=== PATIENT | female | born 1995 | race American Indian/Alaskan Native ===

== ENCOUNTER 2025-02-06 15:31 | Outpatient (AMB) | payer MEDICARE, MEDICAID, SELFPAY ==
--- NOTE | 2025-02-06 15:33 | A.OFFPC_ITS ---
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: No Accompanied by: Self / Same As Patient Allergies gabapentin Allergy (Mild, Verified 02/06/25 15:44) Muscle cramps pregabalin (From Lyrica) Allergy (Mild, Verified 02/06/25 15:44) Muscle cramps Medication List - Last Reconciled 02/08/25 by Manpreet Coe MD buspirone 5 mg PO TID cholecalciferol (vitamin D3) 25 mcg PO DAILY guanfacine 1 mg PO DAILY omeprazole 20 mg PO DAILY Tobacco use date assessed: 02/06/25 Dental Screening Dental Screen Date: 02/06/25 Did you have a dental visit in the last 12 months?: Yes Did you have a dental problem in the last 6 months where you did not have access to dental care?: Yes Was dental information given to patient?: Patient has dentist HPI HPI Comments History of Present Illness Details History of Present Illness The patient is a 29-year-old female presenting to [facility] as she is transitioning from another practice. Autism Spectrum Disorder: The patient has a diagnosis of autism with associated sensory sensitivities, particularly to sound. Due to her sensitivity, she is unable to be on camera during telehealth appointments. Post-traumatic Stress Disorder: A few months ago, the patient experienced an acoustic trauma from a loud noise, which immediately caused a headache and disorientation. Following this event, she was seen by an ENT who prescribed potassium iodide nasal drops in error, which caused a violent screaming reaction. Her mother reports that since these events, the patient has been totally traumatized, is highly agitated, angry, cries easily, and has difficulty with self-care such as washing her face. She becomes visibly distressed and cries when the events are discussed. She previously saw a therapist online but stopped due to a negative interaction where the therapist was reportedly cruel and did not accommodate her needs related to her autism. Chronic Pain Syndrome: The patient has diagnoses of fibromyalgia, chronic pain syndrome, and chronic headaches. She also experiences paresthesias. Her mother states the chronic pain began years ago after the patient suffered a concussion in school that was not properly addressed. She also sustained a fall flat on her back after the concussion for which she received some physical therapy but no other treatment. She takes ibuprofen for pain, which she reports is not always effective. Endometriosis: The patient has a diagnosis of endometriosis, which was identified on an ultrasound. She manages this condition with a Depo-Provera injection every three months. Eustachian Tube Dysfunction: The patient has a patulous Eustachian tube in her right ear. A previous ENT prescribed an incorrect medication (potassium iodide) for this, which resulted in a severe adverse reaction. Medications: - Buspirone 5 mg - Omeprazole - Vitamin D - Depo-Provera injection every 3 months for endometriosis - Ibuprofen as needed for pain Social History: - The patient is a 29-year-old female wh o is accompanied to the visit by her mother, who serves as the primary historian. - She has a diagnosis of autism, which p resents with auditory hypersensitivity. - Functional Status: The patient is quie t and becomes highly agitated and emotionally distressed when discussing past traumatic medical events. - She has experienced past negative inte ractions with healthcare providers, contributing to her current distress. Family History: - Mother: Has a history of chest pain, w as told she needed coronary artery bypass grafting (CABG) after a cardiac catheterization, which was then changed to a plan for stents. - Mother: Has a history of iron deficien cy anemia. Diagnostic Results: - Ultrasound: Revealed endometriosis. Past Medical History - Autism spectrum disorder - Fibromyalgia - Chronic pain syndrome, since a concuss ion years ago - Chronic headaches - Peripheral neuropathy - Endometriosis - Right eustachian tube dysfunction - History of concussion - History of a fall on her back - History of Pap smear Health Maintenance - Patient receives a Depo-Provera inject ion every three months for endometriosis. - Baseline laboratory studies were order ed, including CBC, CMP, urinalysis, hemoglobin A1c, lipid panel, vitamin B12, folate, vitamin D, TSH, and screening for hepatitis B, hepatitis C, and HIV. - Patient has had a Pap smear in the [facility] Medical History (Updated 02/08/25 @ 20:29 by Manpreet Coe MD) Anxiety Chronic headache Paresthesia Fibromyalgia Eustachian tube dysfunction Endometriosis Chronic pain syndrome PTSD (post-traumatic stress disorder) Autism spectrum disorder Family History (Updated 02/06/25 @ 15:49 by Stephane Maza MA) Father No problems noted. Mother Heart disease Kidney disease Fibromyalgia Social History Housing: House Patient Tobacco Use Status: Never used Tobacco service: No Current occupational status: disabled Cognitive needs: Yes Hearing needs: No Vision needs: Yes (rx glasses) Questionnaire PHQ-9 Over the last 2 weeks, how often have you been bothered by any of the following problems? 1. Little interest or pleasure in doing things: several days 2. Feeling down, depressed, or hopeless: not at all 3. Trouble falling or staying asleep, or sleeping too much: several days 4. Feeling tired or having little energy: several days 5. Poor appetite or overeating: not at all 6. Feeling bad about yourself - or that you are a failure or have let yourself or your family down: several days 7. Trouble concentrating on things, such as reading the newspaper or watching television: several days Source: Developed by Drs. Arpan Plummer, Patricia Stewart, Pedro Jones and colleagues, with an educational chance from [employer]. Review of Systems Narrative Review of Systems - General: Reports difficulty sleeping, taking a while to get settled. - HEENT: Reports history of auditory hypersensitivity. - Neurological: Reports chronic headaches and paresthesias. - Psychiatric: Reports feeling highly agitated, angry, and cries easily. - Musculoskeletal: Reports chronic pain. - Gastrointestinal: Reports new onset of abdominal pain today. - Genitourinary: Mother reports patient is urinating okay. 10-point ROS reviewed and negative except as noted in HPI Physical exam (Primary Care) Vital Signs: Last Vital Signs Temp 98.2 F 02/06/25 15:38 Pulse 89 02/06/25 15:38 Resp 16 02/06/25 15:38 BP 124/90 H 02/06/25 15:38 Pulse Ox 97 02/06/25 15:38 Oxygen Delivery Method Room Air 02/06/25 15:38 BMI result Body Mass Index 38.4 Tobacco/Smoking Status: Tobacco use Status Tobacco use date assessed 02/06/25 02/06/25 15:52 Patient Tobacco Use Status Never used Tobacco 02/06/25 15:52 Narrative Physical Exam General: Well-appearing, in no acute distress. Vital signs: Within normal limits. HEENT: Normocephalic, atraumatic. PERRLA, EOMI. Conjunctiva clear, sclera anicteric. Oropharynx clear, mucous membranes moist. TMs intact bilaterally. Right ear with eustachian tube issues. Neck: Supple, no lymphadenopathy, no thyromegaly, no JVD or carotid bruits. Cardiovascular: RRR, normal S1/S2, no murmurs, rubs, or gallops. Peripheral pulses 2+ and symmetric. No edema. Respiratory: Lungs clear to auscultation bilaterally, no wheezes, rales, or rhonchi. Normal effort. Abdomen: Soft, non-tender, non-distended. Normoactive bowel sounds. No hepatosplenomegaly, no masses. Reports pain upon palpation. MSK: Full range of motion, no joint swelling or deformity. Normal gait. Reports chronic pain and fibromyalgia. Skin: Warm, dry, intact. No rashes, lesions, or pallor. Neuro: Alert and oriented x3. Cranial nerves II-XII intact. Strength 5/5 throughout. Sensation intact. Reflexes 2+ symmetric. Normal coordination and gait. Reports chronic headaches and paresthesias. Psych: Appropriate mood and affect. Normal judgment and insight. Reports being highly agitated and having posttraumatic stress symptoms. Coding Level of Care Code New Pt Level 4 (25024) Diagnoses Autism spectrum disorder F84.0 PTSD (post-traumatic stress disorder) F43.10 Chronic pain syndrome G89.4 Endometriosis N80.9 Eustachian tube dysfunction H69.80 Fibromyalgia M79.7 Paresthesia R20.2 Chronic headache R51.9; G89.29 Flank pain R10.9 Assessment & Plan Assessment & Plan (1) Autism spectrum disorder: Code(s): F84.0 - Autistic disorder Category: Medical (2) PTSD (post-traumatic stress disorder): Code(s): F43.10 - Post-traumatic stress disorder, unspecified Category: Medical (3) Chronic pain syndrome: Code(s): G89.4 - Chronic pain syndrome Category: Medical (4) Endometriosis: Code(s): N80.9 - Endometriosis, unspecified Category: Medical (5) Eustachian tube dysfunction: Code(s): H69.80 - Other specified disorders of Eustachian tube, unspecified ear Category: Medical (6) Fibromyalgia: Code(s): M79.7 - Fibromyalgia Category: Medical (7) Paresthesia: Code(s): R20.2 - Paresthesia of skin Category: Medical (8) Chronic headache: Code(s): R51.9 - Headache, unspecified; G89.29 - Other chronic pain Category: Medical (9) Flank pain: Code(s): R10.9 - Unspecified abdominal pain Plan Consent Patient was informed and verbally consented to the use of an ambient scribe for clinic note documentation during this visit. Plan 1. Encounter For Administrative Examination - Will establish primary care for this patient who is transitioning from another practice. - A comprehensive set of baseline labs will be ordered, including a CBC, CMP, urinalysis, HbA1c, lipid panel, B12, folate, vitamin D, TSH, and infectious disease screening (Hepatitis B, C, and HIV). - A referral will be placed for community navigation services to connect the patient and her family with available resources. - Plan to follow up in two weeks to review the results of the labs and the status of referrals. 2. Post-Traumatic Stress Disorder - The patient exhibits signs of significant psychological trauma, including high agitation and emotional lability, stemming from a past acoustic injury and subsequent negative medical encounters. - A referral will be placed to Behavioral Health for evaluation, talk therapy, and potential medication management. 3. Chronic Pain Syndrome - The patient has a history of fibromyalgia, chronic pain, and chronic headaches, which she manages with ibuprofen with variable relief. - Ordered baseline labs will help to rule out other underlying causes for her chronic pain symptoms. - Will consider future referrals to specialists such as rheumatology, neurology, and pain management based on initial workup. 4. Endometriosis - The patient manages her endometriosis with a Depo-Provera injection every three months. - This practice will take over the administration of her Depo-Provera injections. 5. Eustachian Tube Dysfunction, Right Ear - The in-office otoscopic exam of the right ear was normal, but given the history and the patient's traumatic experience, a specialist evaluation is warranted. - A referral will be placed to an ENT specialist, ensuring it is not the same provider she saw previously. 6. Abdominal Pain, Unspecified - The patient had new onset of abdominal tenderness on examination today. - The ordered CMP and urinalysis will serve as an initial workup for this finding. Discussion Notes I had a detailed discussion with the patient and her mother, who is her primary support. I acknowledged the significant trauma the patient has experienced and the resulting psychological distress, which appears consistent with post- traumatic stress. I explained my plan to order comprehensive baseline labs to get a complete overview of her health status. I informed them of my plan to place referrals to Behavioral Health for therapy and to community navigation services for additional support. We also discussed a referral to a new ENT specialist for her Eustachian tube issue, and I was careful to note which provider to avoid. I let them know that I can provide her routine care, including her Depo-Provera injections for endometriosis, going forward. I scheduled a follow-up appointment in two weeks to discuss all the results and the progress with the referrals. Throughout the visit, I provided reassurance to both the patient and her mother of my commitment to providing thorough and compassionate care. Patient Instructions - Please go to the lab to have your blood drawn. - You do not need to fast (go without food) for these tests. - We have placed a referral to Behavioral Health. - They will contact you to set up an appointment for therapy. - We have also placed a referral for community navigation services to help you find other resources you may need. - We are referring you to a new Ear, Nose, and Throat (ENT) doctor. - Please schedule a follow-up appointment to see me in two weeks to go over your lab results. Medical Decision Making This is a 29-year-old female with a complex history including autism, fibromyalgia, chronic pain, and endometriosis, who presents to [facility]. The patient is accompanied by her mother, who is the primary historian. Her most pressing issue is significant psychological distress, consistent with post- traumatic stress disorder, stemming from an acoustic trauma and a subsequent adverse medical event involving a medication error. This manifests as agitation, emotional lability, and avoidance behaviors. My immediate goals are to establish a therapeutic relationship, provide a safe clinical environment, and address her acute distress. A referral to Behavioral Health is crucial for specialized therapy and management. I'm ordering a comprehensive panel of baseline labs to conduct a thorough medical evaluation, rule out underlying contributors to her chronic pain and fatigue, and establish a baseline for ongoing care. The new finding of abdominal tenderness on exam will be initially investigated with the CMP and urinalysis. Continuity of care for her endometriosis will be provided in-house, and her Eustachian tube dysfunction requires re-evaluation by a trusted ENT specialist. A two-week follow-up is necessary to review all initial findings and adjust the care plan accordingly. Total time spent caring for the patient today was 30 minutes. This includes time spent before the visit reviewing the chart, time spent documenting, and time spent reviewing laboratory results, diagnostic imaging, medications, performing a medically necessary evaluation, counseling on diagnoses, care coordination. Orders: Orders Comprehensive Met. Panel 02/06/25 Z. - Encounter for screening, unspecified Hepatitis B Surface Antibody 02/06/25 Z. - Encounter for screening, unspecified Hemoglobin A1c 02/06/25 Z. - Encounter for screening, unspecified Hepatitis B Surface Antigen 02/06/25 Z13. - Encounter for screening, unspecified HIV Ab/Ag 02/06/25 Z. - Encounter for screening, unspecified Lipid Panel 02/06/25 Z13.9 - Encounter for screening, unspecified TSH reflex Free T4 02/06/25 Z13. - Encounter for screening, unspecified UA CC w/rflx Micro + Cult 02/06/25 Z13. - Encounter for screening, unspecified Vitamin B12 and Folate 02/06/25 Z13. - Encounter for screening, unspecified Complete Blood Count Auto Diff 02/06/25 Z13. - Encounter for screening, unspecified Hepatitis C Antibody 02/06/25 Z13.9 - Encounter for screening, unspecified Magnesium 02/06/25 Z13.9 - Encounter for screening, unspecified Vitamin D 1,25 dihydroxy 02/06/25 Z13.9 - Encounter for screening, unspecified Referrals Nurse Navigator Referral F43.10 - Post-traumatic stress disorder, unspecified, F84.0 - Autistic disorder Behavioral Health Referral F41.9 - Anxiety disorder, unspecified, F43.10 - Post-traumatic stress disorder, unspecified, F84.0 - Autistic disorder
[2025-02-06 15:38] VITALS: BP 124/90; PULSE 89; RESP 16; TEMP 36.8; O2SAT 97; BMI 38.4
--- OUTSIDE RECORDS SUMMARY | 2025-02-06 16:35 | XMS_ITS | Continuity of Care Document ---
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 On examination it appeared that her right tympanic membrane was moving with her heartbeat. Could be form of patulous ET on the right . I did perform a Malleolar tuning fork test which was actually positive to the affected side. SSCD is also in differential.. I did order CT scan today which showed: some thinning of superior canal and tegmen mastoidium but limited to motion artifact. Could consider repeat scan with Poschal and Stenver Views if more concern. Start Estrogen/Iodin e gtt to right nasal cavity Consider Eustachian Tuboplsaty or filler injection in future. RV in 1-[address] Emerson. [email or web address] Not available 12/25/2024 14:55:57 Plan of Treatment Reminders Order Date Submit Date Provider Last Modified By Organization Details Last Modified Time Details Appointments None recorded. Lab None recorded. Referral None recorded. Procedures None recorded. Surgeries None recorded. Imaging None recorded. Medication Orders potassium iodide 1 gram/mL oral solution 2024 025 [id number], [address] [place], [place], [id number], 14:55:31 Patient TargetsNo targets recorded. Patient InstructionsNo instructions recorded. Reason for Referral None Reported. Results Created Date Observation Date Name Description Value Unit Range Abnormal Flag Note LastModifiedBy Organization Detail LastModifiedTime 12/27/19 audio gram No observ ation record ed. BARCODE Not Available 2024 10:35:56 02/07/2012/25/2024 CT, tempo ral bone, w/o contr ast No observ ation record ed. [email or web address] [facility] [address], [place], [address], 02/06/2025 14:10:49 Result Notes None recorded. Problems Name Problem SNOMED Code Status Onset Date Resolution Date Notes Provider Name and Address Organization Details Recorded Time Bilateral tinnitus 9319542492694 Active 2024 Gurinder Florez DO 100 [facility],[address], [place], [address], [facility] - [facility] 12:55:20 Noise effects on inner ear 63972437 Active 2024 Gurinder Florez DO [address] [facility], [address], [place], [address], [facility] - [facility] [place] 12:55:26 Sensorineur al hearing loss of bilateral ears 643635111 Active 2024 ROLANDO HERRING, [facility],[address], [place], [address], [facility] - [facility] [place] 13:49:49 Semicircula r canal dehiscence syndrome 521340767 Active 2024 Gurinder Florez DO 100 [facility],[address], [place], [address], [place] - [facility] [place] 14:24:02 Patulous right Eustachian tube 0291587231033 104 Active 2024 Gurinder Florez DO [address] [facility],[address], [place], [address], [place] - [facility] [place] 14:50:16 Problem Notes None recorded. Procedures Surgical History Date Name Laterality Status Provider Name and Address Organization Details Recorded Time Comp Audio with Tymps - 64149 & 34000 completed ROLANDO HERRING, AUD 100 [facility],[address] [address], [place], [address], [facility] - [facility] 12/25/2024 13:48:51 CT temporal bones - Xoran completed Gurinder Florez, DO 100 [facility] [address], [place], [address], [facility] - [facility] 12/25/2024 14:52:39 Imaging Results None recorded. Procedure Notes None recorded. Medical Equipment None Reported. Medications Name Sig Start Date Stop Date Status Note LastModified by Organization Details LastModified Time buspirone 5 mg tablet TAKE 1 TABLET BY MOUTH THREE TIMES DAILY active Not Available Not Available Not Available clonidine HCl 0.1 mg tablet TAKE 1 TABLET BY MOUTH TWICE DAILY active Not Available Not Available No t Available potassium iodide 1 gram/mL oral solution ADMINISTER 2 DROPS INTO RIGHT NASAL CAVITIY TWICE DAILY X 21 DAYS active Not Available Not Available No t Available amitriptylin e 10 mg tablet TAKE 1 TABLET BY MOUTH DAILY AT BEDTIME active Not Available Not Available N ot Available dexamethason e 4 mg tablet TAKE 2 TABLETS BY MOUTH DAILY FOR 10 DAYS active Not Available Not Available Not Available guanfacine 1 mg tablet TAKE 1 TABLET BY MOUTH DAILY active Not Available Not Available Not Available omeprazole 20 mg capsule,nadege yed release TAKE 1 CAPSULE BY MOUTH DAILY active Not Available Not Available Not Available hydroxyzine HCl 25 mg tablet TAKE 1 TABLET BY MOUTH FOUR TIMES DAILY NEEDED FOR ANXIETY active Not Available Not Available Not Available ibuprofen 600 mg tablet TAKE 1 TABLET BY MOUTH FOUR TIMES DAILY WITH MEALS NEEDED active Not Available Not Available No t Available amoxicillin 875 mg-potassium clavulanate 125 mg tablet TAKE 1 TABLET BY MOUTH EVERY 12 HOURS FOR 7 DAYS active Not Available Not Available N ot Available cholecalcife rol (vitamin D3) 25 mcg (1,000 unit) capsule TAKE 1 CAPSULE BY MOUTH EVERY DAY active Not Available Not Available No t Available medroxyproge sterone 150 mg/mL intramuscula r syringe ADMINISTER 1 ML IN THE MUSCLE EVERY 3 MONTHS active Not Available Not Available No t Available Paxlovid 300 mg (150 mg x 2)-100 mg tablets in a dose pack TK 2 NIRMATRELVI R TS AND 1 RITONAVIR T TOGETHER PO TWICE DAILY active Not Available Not Available Not Available Vitals Date Recorded Body height Body mass index (BMI) Body weight Provider Name and Address Organization Details Last Updated DateTime 12/25/2024 154.94 cm 44.4 kg/m2 345298.21 g Anabelle Forrest [place] - [facility] 12/25/2024 14:00:21 Social History None recorded. Functional Status None recorded. Mental Status None recorded. Family History Nothing Reported. Medical History No medical history recorded. Gynecological HistoryNo gynecological history recorded. Obstetrics History GPAL:G 0 P 0 0 0 0 Past Encounters Encounter ID Performer Location Encounter Start Date Encounter Closed Date Diagnosis/Indication Diagnosis SNOMED-CT Code Diagnosis ICD10 Code Diagnosis IMO Codes Diagnosis Note [id number] Gurinder Florez DO [facility] of [address] [address] 12/25/2024 12:57:53 12/25/2024 14:52:15 Bilateral tinnitus 8467300206 102 H93.13 025018 Noise effe cts on inner ear 26675201 H83.3X3 16324276 Semicircul ar canal dehiscence syndrome 249985794 H83.8X9 9333200030 right Patulous r ight Eustachian tube 7198886755 832041 H69.01 [id number] ROSALEE PHOENIX [facility] of [address] [address] 12/25/2024 13:48:40 12/26/2024 14:11:38 Sensorineural hearing loss of bilateral ears 576843467 H90.3 [id number] Audiologic al evaluation results:Ri ght ear:Normal auditory thresholds sloping at 8kHz to mild sensorineu ral hearing loss with excellent word recognitio n.Left ear:Normal auditory thresholds sloping at4kHz to a mild to moderate sensorineu ral hearing loss with excellent word recognitio n. Conductive component present at 4kHz.Tympa nometry:Ri ght Ear:Type CLeft Ear:Type C Health Concerns Section Related Observation LastModified by Organization Detai ls LastModified Time None Recorded Concern Status LastModified by Organization Details LastModified Time None Recorded Payers Encounter Date Sequence Insurance Name Policy Number Policy Santos Covered Member ID Santos Member ID Guarantor Name 12/25/2024 2 [place] [facility] Sultana Reeves [id number] Sultana Reeves 12/25/2024 1 MEDICARE B-[place]: [facility] Sultana Reeves [id number] Sultana Reeves Notes Date Note Type Note Provider Name and Address Organization Details Recorded Time 12/25/2024 text/html ROS as noted in the HPI The patient presents today with otologic concerns including Bilateral non-pulsatile tinnitus for weeks . This has been progressive in nature. They endorse prior acoustic trauma. They deny significant occupational noise exposure. They endorse hearing lossThey deny otalgiaThey deny vertigoThey endorse autophonyThey deny cardiovascular or thyroid concerns. Prior Audiogram: None Gurinder Florez, DO [address], [address], [facility] 12/25/2024 14:56:10 12/25/2024 text/html Audiological Nirali luation HPIReported by PatientHearing LossFor hearing loss perceived, patient reportsnone (no loss of audibility).TinnitusFor tinnitus reported, patient reportsboth ears.Abnormal Auditory PerceptionFor abnormal auditory perceptions noted, patient reportshyperacusis (both ears). ROLANDO HERRING, AUD 100 [facility],[address], [address], [facility] 12/25/2024 14:26:20 OBGyn Episode No OBEpisode recorded.
--- OUTSIDE RECORDS SUMMARY | 2025-02-06 16:35 | XMS_ITS | Clinical Summary ---
Author Organization [facility] Address [address] [place], [place] [address] Phone Care Team Providers Care Bilingual Operator Name Role Phone Jose David Us MD Primary Care Provider [phone] Social History Tobacco Use Types Packs/Day Years Used Date Smoking Tobacco: Never Assessed Comments Unknown Sex and Gender Information Value Date Recorded Sex Assigned at Not on file Legal Sex Female 6:19 PM EST Gender Identity Not on file Sexual Orientation Not on file Plan of Treatment Not on file Medical Devices Not on file Insurance [place] [id number] [facility] MEDICARE PART A & [place] [address] [place] [address] MEDICARE PART A & B [facility] MEDICARE PART A & B [facility] & [facility] [place] [facility] [place] [facility] & [facility] A & B [facility] Care Teams Bilingual Operator Relationship Specialty Start Date End Date Jose David Us MD [address] [place] [address] [place] [address] PCP - General Internal Medicine 10/21/21 Additional Source Comments The information contained in this document represents components of the legal health record. It is not the complete legal health record.[facility]
--- OUTSIDE RECORDS SUMMARY | 2025-02-06 16:35 | XMS_ITS | Continuity of Care Document ---
Author Organization [place] - [facility], [facility] Address [address] [place] [address] Care Team Providers Care Manager Ethics Name Role Phone CORTES WASSERMAN Referring Provider Assessment Encounter Date Assessment Date Assessment LastModified by Organization Details LastModified Time 12/25/2024 12/25/2024 Follow up with referring provider. [email or web address] Not available 12/25/2024 13:48:51 Plan of Treatment Reminders Order Date Submit Date Provider Last Modified By Organization Details Last Modified Time Details Appointments None record ed. Lab None record ed. Referral None record ed. Procedures None record ed. Surgeries None record ed. Imaging None record ed. Medication Orders None record ed. Patient TargetsNo targets recorded. Patient InstructionsNo instructions recorded. Reason for Referral None Reported. Results Created Date Observation Date Name Description Value Unit Range Abnormal Flag Note LastModifiedBy Organization Detail LastModifiedTime 12/27/19 audio gram No observ ation record ed. BARCODE Not Available 2024 10:35:56 02/07/2012/25/2024 CT, tempo ral bone, w/o contr ast No observ ation record ed. [email or web address] [facility] 100 [facility] 100, [place], [address], 02/06/2025 14:10:49 Result Notes None recorded. Problems Name Problem SNOMED Code Status Onset Date Resolution Date Notes Provider Name and Address Organization Details Recorded Time Bilateral tinnitus 0967686475518 Active 2024 Gurinder Florez, DO [address], [address] , [facility] - [facility] 12:55:20 Noise effects on inner ear 70981274 Active 2024 Gurinder Florez DO 100 [facility], E [facility], [place], [address], [facility] - [facility] [place] 12:55:26 Sensorineur al hearing loss of bilateral ears 893147414 Active 2024 ROLANDO HERRING, [facility] 100 [facility], E [facility], [place], [address], [facility] - [facility] [place] 13:49:49 Semicircula r canal dehiscence syndrome 148979045 Active 2024 Gurinder Florez, 100 [facility], E [facility], [place], [address], [facility] - [facility] [place] 14:24:02 Patulous right Eustachian tube 6241010760076 104 Active 2024 Gurinder Florez, 100 [facility],[address] [address], [place], [address], [facility] - [facility] [place] 14:50:16 Problem Notes None recorded. Procedures Surgical History Date Name Laterality Status Provider Name and Address Organization Details Recorded Time Comp Audio with Tymps - 22541 & 17942 completed ROLANDO HERRING, [facility] 100 [facility],[address], [address], [facility] - [facility] [place] 12/25/2024 13:48:51 CT temporal bones - Xoran completed Gurinder Florez, 100 [facility],[address], [address], [facility] - [facility] [place] 12/25/2024 14:52:39 Imaging Results None recorded. Procedure [...] Updated DateTime 12/25/2024 154.94 cm 44.4 kg/m2 657492.[address] - [facility] 12/25/2024 14:00:21 Social History None recorded. Functional Status None recorded. Mental Status None recorded. Family History Nothing Reported. Medical History No medical history recorded. Gynecological HistoryNo gynecological history recorded. Obstetrics History GPAL:G 0 P 0 0 0 0 Past Encounters Encounter ID Performer Location Encounter Start Date Encounter Closed Date Diagnosis/Indication Diagnosis SNOMED-CT Code Diagnosis ICD10 Code Diagnosis IMO Codes Diagnosis Note [id number] Gurinder Florez DO [facility] [address] [address] 12/25/2024 12:57:53 12/25/2024 14:52:15 Bilateral tinnitus 4144340898 102 H93.13 727581 Noise effe cts on inner ear 31713551 H83.3X3 15904463 Semicircul ar canal dehiscence syndrome 546261004 H83.8X9 3745083261 right Patulous r ight Eustachian tube 4328504403 858408 H69.01 [id number] ROSALEE PHOENIX [facility] [address] [place] [address] 12/25/2024 13:48:40 12/26/2024 14:11:38 Sensorineural hearing loss of bilateral ears 161482672 H90.3 33015580 Audiologic al evaluation results:Ri ght ear:Normal auditory [...] Member ID Guarantor Name 12/25/2024 2 [place] [facility] Sultana Reeves [id number] Sultana Leandro 12/25/2024 1 MEDICARE B-[place]: [facility] [employer] Sultana Reeves [id number] Sultana Reeves Notes Date Note Type Note [...] concerns. Prior Audiogram: None Gurinder Florez, DO [address] [place] [address],[address] [address], [place], [address], [facility] - [facility] 12/25/2024 14:56:10 12/25/2024 text/html Audiological Nirali luation HPIReported by PatientHearing LossFor hearing loss perceived, patient reportsnone (no loss of audibility).TinnitusFor tinnitus reported, patient reportsboth ears.Abnormal Auditory PerceptionFor abnormal auditory perceptions noted, patient reportshyperacusis (both ears). ROLANDO HERRING, [address] [address], [place], [address], [facility] 12/25/2024 14:26:20 OBGyn Episode No OBEpisode recorded.
--- OUTSIDE RECORDS SUMMARY | 2025-02-06 16:35 | XMS_ITS | Data Portability ---
Author Organization [place] - [facility], Allergy Address [address] [address] Care Team Providers Care Calculation Clerk Name Role Phone CORTES WASSERMAN Referring Provider Assessment Encounter Date Assessment Date Assessment LastModified by Organization Details LastModified Time 12/25/2024 12/25/2024 Follow up with referring provider. [email or web address] Not available 12/25/2024 13:48:51 12/25/2024 12/25/2024 Sultana is a 29-year-old female [...] iodide 1 gram/mL oral solution 2024 025 [id number], [address] [place], [place], [id number], 14:55:31 Patient TargetsNo targets recorded. Patient InstructionsNo [...] [email or web address] [facility] [address], [place], [address], 02/06/2025 14:10:49 Result Notes None recorded. Problems Name Problem SNOMED Code Status Onset Date Resolution Date Notes Provider Name and Address Organization Details Recorded Time Bilateral tinnitus 7744490405620 Active 2024 Gurinder Florez DO [address] [address], [place], [address], [facility] - [facility] 12:55:20 Noise effects on inner ear 59671036 Active 2024 Gurinder Florez DO [address] [address], [place], [address], [facility] - [facility] [place] 12:55:26 Sensorineur al hearing loss of bilateral ears 315706862 Active 2024 ROLANDO HERRING, [facility] 100 [facility],[address] [address], [place], [address], [facility] - [facility] 13:49:49 Semicircula r canal dehiscence syndrome 069206735 Active 2024 Gurinder Florez DO 100 [facility],[address] [address], [place], [address], [facility] - [facility] [place] 14:24:02 Patulous right Eustachian tube 3297837712215 104 Active 2024 Gurinder Florez DO 100 [facility],[address] [address], [place], [address], [place] - [facility] [place] 14:50:16 Problem Notes None recorded. Procedures Surgical History Date Name Laterality Status Provider Name and Address Organization Details Recorded Time Comp Audio with Tymps - 32775 & 28595 completed ROLANDO HERRING, AUD 100 [facility] 100, [place], [address], [place] - [facility] [place] 12/25/2024 13:48:51 CT temporal bones - Xoran completed Gurinder Florez, DO 100 [facility], [place], [address], [place] - [facility] 12/25/2024 14:52:39 Imaging Results None recorded. [...] Not Available Not Available omeprazole 20 mg capsule,nadgee yed release TAKE 1 CAPSULE BY MOUTH [...] Updated DateTime 12/25/2024 154.94 cm 44.4 kg/m2 337233.21 g Anabelle Forrest [place] - [facility] 12/25/2024 14:00:21 Social History None recorded. Functional Status None recorded. Mental Status None recorded. Family History Nothing Reported. Medical History No medical history recorded. Gynecological HistoryNo gynecological history recorded. Obstetrics History GPAL:G 0 P 0 0 0 0 Past Encounters Encounter ID Performer Location Encounter Start Date Encounter Closed Date Diagnosis/Indication Diagnosis SNOMED-CT Code Diagnosis ICD10 Code Diagnosis IMO Codes Diagnosis Note [id number] Gurinder Florez DO [facility] of [address] [address] 12/25/2024 12:57:53 12/25/2024 14:52:15 Bilateral tinnitus 7958944479 102 H93.13 345747 Noise effe cts on inner ear 68366872 H83.3X3 97993000 Semicircul ar canal dehiscence syndrome 622287436 H83.8X9 6456082113 right Patulous r ight Eustachian tube 1996999534 805449 H69.01 [id number] ROSALEE PHOENIX [facility] of [address] [address] 12/25/2024 13:48:40 12/26/2024 14:11:38 Sensorineural hearing loss of bilateral ears 538930659 H90.3 78583655 Audiologic al evaluation results:Ri t ear:Normal auditory thresholds sloping at 8kHz to [...] by Organization Details LastModified Time None Recorded Advance Directives Directive None Recorded Payers Insurance Date Sequence Insurance Name Policy Number Policy Santos Covered Member ID Santos Member ID Guarantor Name 12/31/2024 2 [place] Sultana Reeves [id number] Sultana Reeves 12/31/2024 1 MEDICARE B-[place]: [employer] [facility] Sultana Reeves [id number] Sultana Reeves Notes Date Note Type Note [...] Prior Audiogram: None Gurinder Florez, DO 100 [facility],[address], [address], [facility] 12/25/2024 14:56:10 12/25/2024 text/html Audiological Nirali luation HPIReported by PatientHearing LossFor hearing loss perceived, patient reportsnone (no loss of audibility).TinnitusFor tinnitus reported, patient reportsboth ears.Abnormal Auditory PerceptionFor abnormal auditory perceptions noted, patient reportshyperacusis (both ears). ROLANDO HERRING, AUD 100 [facility],[address], [address], [facility] 12/25/2024 14:26:20 OBGyn Episode No OBEpisode recorded.
== END 2025-02-06 16:25 | disposition home or self-care (01) ==
LOC: HO.HMCFMS 15:32
PROVIDERS: PCP Student in an Organized Health Care Education/Training Program; Visit Provider Student in an Organized Health Care Education/Training Program
DX: F84.0 Autistic disorder (principal); F43.10 Post-traumatic stress disorder, unspecified; G89.4 Chronic pain syndrome; N80.9 Endometriosis, unspecified; H69.80 Other specified disorders of Eustachian tube, unspecified ear; M79.7 Fibromyalgia; R20.2 Paresthesia of skin; R51.9 Headache, unspecified; G89.29 Other chronic pain; R10.9 Unspecified abdominal pain

== ENCOUNTER → 2025-02-06 15:31 | Outpatient (BNVA) | payer MEDICARE, MEDICAID, SELFPAY | PROVIDERS: PCP Student in an Organized Health Care Education/Training Program; Visit Provider Student in an Organized Health Care Education/Training Program | DX: F84.0 Autistic disorder (principal); F43.10 Post-traumatic stress disorder, unspecified; G89.4 Chronic pain syndrome; N80.9 Endometriosis, unspecified; H69.80 Other specified disorders of Eustachian tube, unspecified ear; M79.7 Fibromyalgia; R20.2 Paresthesia of skin; R51.9 Headache, unspecified; R10.9 Unspecified abdominal pain; Z79.899 Other long term (current) drug therapy | CPT/HCPCS: 99202 ==

== ENCOUNTER 2025-02-10 15:11 | Outpatient (REF) | payer MEDICARE, MEDICAID, SELFPAY ==
--- OUTSIDE RECORDS SUMMARY | 2025-02-10 16:58 | XMS_ITS | Clinical Summary ---
Author Organization [facility] Address [address] [place], [place] [address] Phone Care Team Providers Care Church Supervisor Name Role Phone Jose David Us MD Primary Care Provider [phone] Social History Tobacco Use Types Packs/Day Years Used Date Smoking Tobacco: Never Assessed Comments Unknown Sex and Gender Information Value Date Recorded Sex Assigned at Not on file Legal Sex Female 6:19 PM EST Gender Identity Not on file Sexual Orientation Not on file Plan of Treatment Not on file Medical Devices Not on file Insurance MED[place] PART [place] [id number] [facility] MEDICARE PART A & [place] [address] [address] MEDICARE PART A & B [facility] MEDICARE PART A & [facility]IC[facility] & B [employer] MEDIC[facility] PART A & B [place] [facility] A & [facility] B [facility] Care Teams Church Supervisor Relationship Specialty Start Date End Date Jose David Us MD [address] [place] [address] [place] [address] PCP - General Internal Medicine 10/21/21 Additional Source Comments The information contained in this document represents components of the legal health record. It is not the complete legal health record.[facility]
--- OUTSIDE RECORDS SUMMARY | 2025-02-10 16:58 | XMS_ITS | Encounter Summary ---
Author Organization [facility] Address [address] [place] [address] Care Team Providers Care Insurance Policy Issue Clerk Name Role Phone Russell Castillo EDUCATION CONSULTANT Primary Care Provider [phone] Encounter Details Date Type Department Care Team (Late st Contact Info) Description 02/09/2025 Telephone [facility] Cardiology [facility] [address] [place] [address] Russell Castillo NP [facility] [address] [place] [address] Social History Tobacco Use Types Packs/Day Years Used Date Smoking Tobacco: Never Smokeless Tobacco: Never Alcohol Use Standard Drinks/Week Comments Not Asked 0 (1 standard drink = 0.6 oz pur e alcohol) Comments Unknown Sex and Gender Information Value Date Recorded Sex Assigned at Not on file Legal Sex Female 1:07 AM EST Gender Identity Not on file Sexual Orientation Not on file documented as of this encounter Plan of Treatment Not on file documented as of this encounter Visit Diagnoses Not on filedocumented in this encounter Care Teams Insurance Policy Issue Clerk Relationship Specialty Start Date End Date Russell Castillo NP 21 [facility] [address] [place] [address] PCP - General Nurse Practitioner 10/17/24 documented as of this encounter
--- OUTSIDE RECORDS SUMMARY | 2025-02-10 16:58 | XMS_ITS | Continuity of Care Document ---
Author Organization [place] - [facility], [facility] Address [address] [place] [address] Care Team Providers Care Network Development Coordinator Name Role Phone CORTES WASSERMAN Referring Provider [...] iodide 1 gram/mL oral solution 2024 025 [id number], [address] [place], [id number], 14:55:31 Patient TargetsNo targets recorded. Patient InstructionsNo [...] [facility] [address], [place], [address], 02/06/2025 14:10:49 Result Notes None recorded. Problems Name Problem SNOMED Code Status Onset Date Resolution Date Notes Provider Name and Address Organization Details Recorded Time Bilateral tinnitus 6164689942278 Active 2024 Gurinder Florez DO 100 [facility], [place], [address], [facility] - [facility] 12:55:20 Noise effects on inner ear 76584405 Active 2024 Gurinder Florez DO 100 [facility], [place], [address], [facility] - [facility] [place] 12:55:26 Sensorineur al hearing loss of bilateral ears 398892977 Active 2024 ROLANDO HERRING, [facility] 100 [facility] [place], [place], [address], [facility] - [facility] [place] 13:49:49 Semicircula r canal dehiscence syndrome 553357720 Active 2024 Gurinder Florez DO 100 [facility],[address], [place], [address], [place] - [facility] [place] 14:24:02 Patulous right Eustachian tube 6695726808182 104 Active 2024 Gurinder Florez DO 100 [facility],[address], [place], [address], [place] [facility] [place] 14:50:16 Problem Notes None recorded. Procedures Surgical History Date Name Laterality Status Provider Name and Address Organization Details Recorded Time Comp Audio with Tymps - 97538 & 88908 completed ROLANDO HERRING, AUD 100 [facility],[address] [address], [place], [address], [facility] - [facility] 12/25/2024 13:48:51 CT temporal bones - Xoran completed Gurinder Florez, DO 100 [facility] [address], [place], [address], [facility] - [facility] 12/25/2024 14:52:39 Imaging Results None recorded. [...] Updated DateTime 12/25/2024 154.94 cm 44.4 kg/m2 048804.21 g Anabelle Forrest [place] - [facility] 12/25/2024 14:00:21 Social History None recorded. Functional Status None recorded. Mental Status None recorded. Family History Nothing Reported. Medical History No medical history recorded. Gynecological HistoryNo gynecological history recorded. Obstetrics History GPAL:G 0 P 0 0 0 0 Past Encounters Encounter ID Performer Location Encounter Start Date Encounter Closed Date Diagnosis/Indication Diagnosis SNOMED-CT Code Diagnosis ICD10 Code Diagnosis IMO Codes Diagnosis Note [id number] Gurinder Florez DO [facility] of [address] [address] 12/25/2024 12:57:53 12/25/2024 14:52:15 Bilateral tinnitus 0358674489 102 H93.13 863574 Noise effe cts on inner ear 88962690 H83.3X3 13607909 Semicircul ar canal dehiscence syndrome 659054552 H83.8X9 7920118255 right Patulous r ight Eustachian tube 4076899569 159902 H69.01 [id number] ROSALEE PHOENIX [facility] of [address] [address] 12/25/2024 13:48:40 12/26/2024 14:11:38 Sensorineural hearing loss of bilateral ears 066806188 H90.3 [id number] Audiologic al evaluation results:Ri ght ear:Normal auditory [...] Member ID Guarantor Name 12/25/2024 2 [place] [facility] Sultana Reeves [id number] Sultana Reeves 12/25/2024 1 MEDICARE B-[place]: [facility] Sultana Reeves [id number] Sultana Reeves Notes Date Note Type Note [...] Prior Audiogram: None Gurinder Florez, DO [address], [address], [facility] 12/25/2024 14:56:10 12/25/2024 text/html Audiological Nirali luation HPIReported by PatientHearing LossFor hearing loss perceived, patient reportsnone (no loss of audibility).TinnitusFor tinnitus reported, patient reportsboth ears.Abnormal Auditory PerceptionFor abnormal auditory perceptions noted, patient reportshyperacusis (both ears). ROLANDO HERRING, AUD 100 [facility],[address], [address], [facility] 12/25/2024 14:26:20 OBGyn Episode No OBEpisode recorded.
--- OUTSIDE RECORDS SUMMARY | 2025-02-10 16:58 | XMS_ITS | Clinical Summary ---
Author Organization [facility] Address [address] [place] [address] Phone Care Team Providers Care Student Counsellor Name Role Phone Russell Castillo NP Primary Care Provider [phone] Encounters Date Type Department Care Team Description 02/09/[address] [place] [address] Russell Castillo, JORY from Last 3 Months Family History Medical History Relation Name Comments Allergies Mother Asthma Mother Depression Mother Thyroid disease Mother Hyperlipidemia Mother's side 1 Mental illness Mother's side 2 Hypertension Sister Blindness Neg Hx Cataracts Neg Hx Glaucoma Neg Hx Macular degeneration Neg Hx Strabismus Neg Hx Relation Name Status Comments Father Alive Mother Alive Sherri Imnaha on Mother's side 1 Mother's side 2 Sister Social History Tobacco Use Types Packs/Day Years Used Date Smoking Tobacco: Never Smokeless Tobacco: Never Alcohol Use Standard Drinks/Week Comments Not Asked 0 (1 standard drink = 0.6 oz pur e alcohol) Comments Unknown Sex and Gender Information Value Date Recorded Sex Assigned at Not on file Legal Sex Female 1:07 AM EST Gender Identity Not on file Sexual Orientation Not on file Obstetrics History Plan of Treatment Health Maintenance Due Date Last Done Comments HPV Vaccines (2 - 2-dose series) 06/17/2007 12/17/2006 Cervical Cancer Screening: Pap Smear 09/28/2015 DTaP,Tdap,and Td Vaccines (8 - Td or Tdap) 12/17/2016 12/17/2006, 01/31/2006, 04/26/1999, Additional history exists Depression Screening 04/02/2024 HIV Screening 10/18/2024 Hepatitis C Screening 10/18/2024 Medicare Annual Wellness Visit 10/18/2024 Social Influencers of Health Screening 10/18/2024 COVID-19 Vaccine (2024- season) 2024 Influenza Vaccine (#1) 2024 RSV Immunization Adult Patients (1 - 1-dose 75+ series) 2069 HIB Vaccines Completed 02/21/1996, 04/03, 1994 IPV Vaccines Completed 04/26/1999, 02/01, 02/21/1996, Additional history exists MMR Vaccines Completed 11/25/1999, 02/21/1996 Hepatitis B Vaccines Completed 06/12/2007, 04/26/1999, 01/21/1998 Meningococcal ACWY Vaccine Completed 04/16/2013, Hepatitis A Vaccines Aged Out No long er eligible based on patient's age to complete this topic Meningococcal B Vaccine Aged Out No l onger eligible based on patient's age to complete this topic Pneumococcal Vaccine: Pediatrics (0 to 5 Years) and At-Risk Patients (6 to 49 Years) Aged Out No longer eligible based on patient's age to complete this topic RSV Immunization Patients Under 20 months Aged Out No longer eligible based on patient's age to complete this topic Varicella Vaccines Aged Out No longer eligible based on patient's age to complete [place] [id number] MEDICAID - [place] Care Teams Student Counsellor Relationship Specialty Start Date End Date Russell Castillo NP [address] [place] [address] PCP - General Nurse Practitioner 10/17/24
--- OUTSIDE RECORDS SUMMARY | 2025-02-10 16:58 | XMS_ITS | Continuity of Care Document ---
Author Organization [place] - [facility], [facility] Address [address] [place] [address] Care Team Providers Care Child & Adolescent Psychiatrist Name Role Phone CORTES WASSERMAN Referring Provider [phone] Assessment Encounter Date Assessment Date Assessment LastModified [...] dlofgrenmd [facility] [address] [facility] [address], [place], [address], 02/06/2025 14:10:49 Result Notes None recorded. Problems Name Problem SNOMED Code Status Onset Date Resolution Date Notes Provider Name and Address Organization Details Recorded Time Bilateral tinnitus 2551091228113 Active 2024 Gurinder Florez, DO [address], [address] , [facility] - [facility] 12:55:20 Noise effects on inner ear 19052881 Active 2024 Gurinder Florez DO 100 [facility], E [facility], [place], [address], [facility] - [facility] [place] 12:55:26 Sensorineur al hearing loss of bilateral ears 925442180 Active 2024 ROLANDO HERRING, [facility] 100 [facility], E [facility], [place], [address], [facility] - [facility] [place] 13:49:49 Semicircula r canal dehiscence syndrome 053201994 Active 2024 Gurinder Florez, 100 [facility], E [facility], [place], [address], [facility] - [facility] [place] 14:24:02 Patulous right Eustachian tube 5367554720005 104 Active 2024 Gurinder Florez, 100 [facility],[address] [address], [place], [address], [facility] - [facility] [place] 14:50:16 Problem Notes None recorded. Procedures Surgical History Date Name Laterality Status Provider Name and Address Organization Details Recorded Time Comp Audio with Tymps - 38677 & 87821 completed ROLANDO HERRING, [facility] 100 [facility],[address], [address], [facility] - [facility] [place] 12/25/2024 13:48:51 CT temporal bones - Xoran completed Gurinder Florez, 100 [facility],[address], [address], [facility] - [facility] [place] 12/25/2024 14:52:39 Imaging Results None recorded. Procedure [...] Updated DateTime 12/25/2024 154.94 cm 44.4 kg/m2 641331.21 g Anabelle Forrest [place] - [facility] 12/25/2024 14:00:21 Social History None recorded. Functional Status None recorded. Mental Status None recorded. Family History Nothing Reported. Medical History No medical history recorded. Gynecological HistoryNo gynecological history recorded. Obstetrics History GPAL:G 0 P 0 0 0 0 Past Encounters Encounter ID Performer Location Encounter Start Date Encounter Closed Date Diagnosis/Indication Diagnosis SNOMED-CT Code Diagnosis ICD10 Code Diagnosis IMO Codes Diagnosis Note [id number] Gurinder Florez DO ENTS [address] [address] 12/25/2024 12:57:53 12/25/2024 14:52:15 Bilateral tinnitus 8948935158 102 H93.13 927339 Noise effe cts on inner ear 12483324 H83.3X3 54303574 Semicircul ar canal dehiscence syndrome 111128233 H83.8X9 9567475381 right Patulous r ight Eustachian tube 7362512787 935849 H69.01 [id number] ROSALEE PHOENIX [facility] [address] [place] [address] 12/25/2024 13:48:40 12/26/2024 14:11:38 Sensorineural hearing loss of bilateral ears 387801556 H90.3 [id number] Audiologic al evaluation results:Ri ght ear:Normal auditory [...] Member ID Guarantor Name 12/25/2024 2 MEDICAID-[place]: [facility] Sultana Reeves [id number] Sultana Leandro 12/25/2024 1 MEDICARE B-[place]: [facility] Compliance 11 SERVICES Sultana Reeves [id number] Sultana Reeves Notes Date Note Type Note [...] concerns. Prior Audiogram: None Gurinder Florez, DO [address] [place] [address],[address] [address], [place], [address], [facility] - [facility] 12/25/2024 14:56:10 12/25/2024 text/html Audiological Nirali luation HPIReported by PatientHearing LossFor hearing loss perceived, patient reportsnone (no loss of audibility).TinnitusFor tinnitus reported, patient reportsboth ears.Abnormal Auditory PerceptionFor abnormal auditory perceptions noted, patient reportshyperacusis (both ears). ROLANDO HERRING, [address] [address], [place], [address], [facility] 12/25/2024 14:26:20 OBGyn Episode No OBEpisode recorded.
--- OUTSIDE RECORDS SUMMARY | 2025-02-10 16:58 | XMS_ITS | Data Portability ---
Author Organization [place] - [facility], Allergy Address [address] [address] Care Team Providers Care Automobile Mechanic Assistant Name Role Phone CORTES WASSERMAN Referring Provider [phone] Assessment Encounter Date Assessment Date Assessment LastModified [...] iodide 1 gram/mL oral solution 2024 025 [employer] [id number], [address] [place], [place], [id number], 14:55:31 Patient TargetsNo targets recorded. Patient InstructionsNo [...] dlofgrenmd [facility] [address], [place], [address], 02/06/2025 14:10:49 Result Notes None recorded. Problems Name Problem SNOMED Code Status Onset Date Resolution Date Notes Provider Name and Address Organization Details Recorded Time Bilateral tinnitus 4370030841920 Active 2024 Gurinder Florez DO [address] [address], [place], [address], [facility] - [facility] 12:55:20 Noise effects on inner ear 49176042 Active 2024 Gurinder Florez DO [address] [address], [place], [address], [facility] - [facility] [place] 12:55:26 Sensorineur al hearing loss of bilateral ears 649854433 Active 2024 ROLANDO HERRING, [facility] 100 [facility],[address] [address], [place], [address], [facility] - [facility] 13:49:49 Semicircula r canal dehiscence syndrome 825513799 Active 2024 Gurinder Florez DO 100 [facility],[address] [address], [place], [address], [facility] - [facility] [place] 14:24:02 Patulous right Eustachian tube 7006545203380 104 Active 2024 Gurinder Florez DO 100 [facility],[address] [address], [place], [address], [place] - [facility] [place] 14:50:16 Problem Notes None recorded. Procedures Surgical History Date Name Laterality Status Provider Name and Address Organization Details Recorded Time Comp Audio with Tymps - 79205 & 49284 completed ROLANDO HERRING, AUD 100 [facility] 100, [place], [address], [place] - [facility] [place] 12/25/2024 13:48:51 CT temporal bones - Xoran completed Gurinder Florez, DO 100 [facility] 100, [place], [address], [place] - [facility] 12/25/2024 14:52:39 Imaging Results None recorded. [...] Updated DateTime 12/25/2024 154.94 cm 44.4 kg/m2 439108.21 g Anabelle Forrest [place] - [facility] 12/25/2024 14:00:21 Social History None recorded. Functional Status None recorded. Mental Status None recorded. Family History Nothing Reported. Medical History No medical history recorded. Gynecological HistoryNo gynecological history recorded. Obstetrics History GPAL:G 0 P 0 0 0 0 Past Encounters Encounter ID Performer Location Encounter Start Date Encounter Closed Date Diagnosis/Indication Diagnosis SNOMED-CT Code Diagnosis ICD10 Code Diagnosis IMO Codes Diagnosis Note [id number] Gurindre Florez DO [facility] of [address] [address] 12/25/2024 12:57:53 12/25/2024 14:52:15 Bilateral tinnitus 9630272373 102 H93.13 [id number] Noise effe cts on inner ear 42987960 H83.3X3 40075230 Semicircul ar canal dehiscence syndrome 021144652 H83.8X9 5182168900 right Patulous r ight Eustachian tube 8349556239 622905 H69.01 [id number] ROSALEE PHOENIX [facility] of [address] [address] 12/25/2024 13:48:40 12/26/2024 14:11:38 Sensorineural hearing loss of bilateral ears 385138943 H90.3 [id number] Audiologic al evaluation results:Ri t ear:Normal auditory [...] Member ID Guarantor Name 12/31/2024 2 [place] [facility] Sultana Reeves [id number] Sultana Reeves 12/31/2024 1 MEDICARE B-[place]: [employer] [facility] Sultana Reeves [id number] Sultana Reeves Notes Date Note Type Note [...] Prior Audiogram: None Gurinder Florez, DO 100 [facility],[address], [address], [facility] 12/25/2024 14:56:10 12/25/2024 text/html Audiological Nirali luation HPIReported by PatientHearing LossFor hearing loss perceived, patient reportsnone (no loss of audibility).TinnitusFor tinnitus reported, patient reportsboth ears.Abnormal Auditory PerceptionFor abnormal auditory perceptions noted, patient reportshyperacusis (both ears). ROLANDO HERRING, AUD 100 [facility],[address], [address], [facility] 12/25/2024 14:26:20 OBGyn Episode No OBEpisode recorded.
[2025-02-10 17:39] LABS: MANUAL DIFF FLAG NO
[2025-02-10 17:48] LABS: Hematocrit 39.6 % (37.0-47.0); Hemoglobin 12.5 g/dl (12.0-16.0); Imm Gran Abs Auto 0.04 X10*3/uL (0.00-0.03); Imm Gran Pct Auto 0.5 % (0.0-0.4); Lymphocytes Absolute Auto 2.8 X10*3/uL (1.2-4.9); Mean Corpuscular HGB Conc 31.6 g/dl (31.0-35.0); Mean Corpuscular Hemoglobin 24.4 pg (27.0-33.0); Mean Corpuscular Volume 77.2 fL (80.0-98.0); NRBC Abs Auto 0.000 X10*3/uL (0.0-0.012); NRBC Pct Auto 0.0 /100WBC (0.0-0.2); Platelet Count 336 X10*3/uL (160-400); Red Blood Count 5.13 X10*6/uL (4.20-5.50); White Blood Count 7.8 X10*3/uL (4.8-10.8)
[2025-02-10 18:13] LABS: Alanine Aminotransferase 6 U/L (0-31); Albumin Level 4.2 g/dL (3.5-5.0); Alkaline Phosphatase 85 U/L (39-117); Anion Gap 12 (12-20); Aspartate Amino Transferase 20 U/L (5-31); Blood Urea Nitrogen 14 mg/dL (9-16); Calcium 9.4 mg/dL (8.4-10.2); Carbon Dioxide 22 mmol/L (22-29); Chloride 109 mmol/L (96-108); Cholesterol 174 mg/dL (<200); Estimated Glomerular Filt Rate > 60; HDL Cholesterol 33 mg/dL (>40); Magnesium 1.8 mg/dL (1.6-2.6); Potassium 3.7 mmol/L (3.3-5.1); Sodium 139 mmol/L (135-145); Total Protein 7.4 g/dL (6.5-8.0); Triglycerides 97 mg/dL (<150)
[2025-02-10 18:15] LABS: Appearance Urine Clear; Glucose Urine UA Negative (Negative); PH 6.0 (5.0-9.0); Specific Gravity - Urine 1.020 (1.005-1.025)
[2025-02-10 18:38] LABS: Folate 8.4 ng/mL (> or = 4.0); Vitamin B12 355 pg/mL (200-900)
[2025-02-11 04:47] LABS: HBS Num1 > 1000.00 mIU/mL (0-7.99); HBsAGNum1 0.45 S/CO (0.00-0.99); HIV Num 1 0.05 S/CO (0.00-0.99); Hepatitis B Surface Antigen Negative (Negative); ~HepC Num1 0.08 S/CO (0.00-0.79); ~Hepatitis B Surface Antibody REACTIVE (Nonreactive); ~Hepatitis C Antibody Nonreactive (Nonreactive)
[2025-02-14 18:33] LABS: VITAMIN D (1,25 OH) D3 74 pg/mL; Vit D (1,25-Dihydroxy) Total 74 pg/mL (18-72); Vitamin D (1,25 OH) D2 <8 pg/mL
== END 2025-02-10 15:12 | disposition home or self-care (01) ==
LOC: HO.HKASLDS 15:11
PROVIDERS: PCP Student in an Organized Health Care Education/Training Program; Visit Provider Student in an Organized Health Care Education/Training Program
DX: Z13.6 Encounter for screening for cardiovascular disorders (principal); Z13.1 Encounter for screening for diabetes mellitus; Z13.29 Encounter for screening for other suspected endocrine disorder; Z11.4 Encounter for screening for human immunodeficiency virus [HIV]; Z13.89 Encounter for screening for other disorder; Z20.6 Contact with and (suspected) exposure to human immunodeficiency virus [HIV]
CPT/HCPCS: 36415; 80053; 80061; 81003; 82607; 82652; 82746; 83036; 83735; 84443; 85025; 86706; 86803; 87340; 87389

== ENCOUNTER 2025-02-20 13:33 | Outpatient (AMB) | payer MEDICARE, MEDICAID, SELFPAY ==
[2025-02-20 13:36] VITALS: BP 132/61; PULSE 96; TEMP 36.7; O2SAT 97; BMI 39.5
--- NOTE | 2025-02-20 13:36 | MHC.PC.OV ---
Vital Signs 02/20/25 13:36 Height 5 ft 3.78 in Weight 228 lb 8 oz BMI 39.5 BP 132/61 Blood Pressure Location Lt brachial Position Sitting Pulse 96 Pulse Source Pulse Oximeter Temp 98.1 F Temp Source Oral Pulse Oximetry (%) 97 Oxygen Delivery Method Room Air Intake Visit Reasons: 2 wk - lab review Dental Laboratory Technology Teacher Required: No Accompanied by: Mother Allergies gabapentin Allergy (Mild, Verified 02/20/25 13:36) Muscle cramps pregabalin (From Lyrica) Allergy (Mild, Verified 02/20/25 13:36) Muscle cramps Tobacco use date assessed: 02/20/25 Dental Screening Dental Screen Date: 02/20/25 Did you have a dental visit in the last 12 months?: Yes Did you have a dental problem in the last 6 months where you did not have access to dental care?: Yes Was dental information given to patient?: Patient has dentist HPI HPI Comments History of Present Illness Details History of Present Illness The patient is a 29 year old individual presenting for review of lab results. Iron Deficiency Anemia: Recent lab results showed low MCV and MCH, indicating the red blood cells are small and pale, which is suggestive of iron deficiency anemia. The cause is believed to be diet-related, as the patient does not have menstrual cycles due to receiving Depo-Provera injections. Prediabetes: The patient's Hemoglobin A1c was 6.2%, placing the patient in the prediabetes range of 5.7% to 6.4%. A random glucose level at the time of the lab draw was 122 mg/dL. Dyslipidemia: A previous provider had noted that the patient's cholesterol was high. Current lipid panel shows a total cholesterol of 174 mg/dL, elevated LDL cholesterol at 122 mg/dL, and low HDL cholesterol at 33 mg/dL. The patient's diet includes items known to affect cholesterol levels such as milk products and cheese. 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 The patient has difficulty with fine motor skills such as buttoning clothes, using zippers, and using keys, and also with gross motor skills like maintaining upright posture while eating. The patient has previously received occupational therapy and speech therapy, and a need for these services was again identified. Contraceptive management: The patient receives Depo-Provera injections for contraception, which are administered every three months. Medications: - Depo-Provera injection for contraception, every three months Social History: - Nutrition: The patient's diet contributes to iron deficiency, prediabetes, and dyslipidemia. - The patient consumes milk products, cheese, and eggs. - Developmental Status: The patient has hypermobility. - The patient demonstrates difficulty with fine motor skills including buttoning clothes, using zippers, and handling keys. - The patient also has difficulty with gross motor skills, such as maintaining posture while eating. - Speech development is impacted, with the patient being non-verbal at times. - Support System: The patient attended the visit with the patient's mother, who is actively involved in the patient's care and coordination. Diagnostic Results: - Labs: - CBC: White blood cells, red blood cells, and hemoglobin are within normal limits. - MCV and MCH are low, suggestive of iron deficiency anemia. - CMP: Sodium, potassium, and kidney function are normal. - Random glucose was 122 mg/dL. - Calcium, magnesium, and liver function are normal. - Hemoglobin A1c: 6.2%, indicating prediabetes. - Lipid panel: Triglycerides normal, total cholesterol 174 mg/dL, LDL 122 mg/dL (elevated), HDL 33 mg/dL (low). - Vitamin D: 74 ng/mL (high). - Vitamin B12: Normal. - Folate: Normal. - TSH: Normal. - Urinalysis: Normal. - Infectious Disease Screen: Negative for Hepatitis B, Hepatitis C, and HIV. Past Medical History - Hypermobility - History of requiring occupational and speech therapy - History of elevated cholesterol - Contraception with Depo-Provera Health Maintenance - Dietary counseling for management of iron deficiency anemia, prediabetes, and dyslipidemia. - Contraceptive management with Depo-Provera. - Screening labs for Hepatitis B, Hepatitis C, and HIV were negative. [facility] Medical History (Updated 02/20/25 @ 15:20 by Manpreet Coe MD) Hypervitaminosis D Developmental coordination disorder Dyslipidemia Prediabetes Iron deficiency anemia Anxiety Chronic headache Paresthesia Fibromyalgia Eustachian tube dysfunction Endometriosis Chronic pain syndrome PTSD (post-traumatic stress disorder) Autism spectrum disorder Family History Father No problems noted. Mother Heart disease Kidney disease Fibromyalgia Social History (Reviewed 02/20/25 @ 13:37 by Nini Chang [facility]) Housing: House Patient Tobacco Use Status: Never used Tobacco service: No Current occupational status: disabled Cognitive needs: Yes Hearing needs: No Vision needs: Yes (rx glasses) Questionnaire PHQ-9 Over the last 2 weeks, how often have you been bothered by any of the following problems? 1. Little interest or pleasure in doing things: several days 2. Feeling down, depressed, or hopeless: not at all 3. Trouble falling or staying asleep, or sleeping too much: several days 4. Feeling tired or having little energy: several days 5. Poor appetite or overeating: not at all 6. Feeling bad about yourself - or that you are a failure or have let yourself or your family down: several days 7. Trouble concentrating on things, such as reading the newspaper or watching television: several days Depression Screening Interpretation: Positive Depression Screening Done: Yes Source: Developed by Drs. Arpan Plummer, Patricia Stewart, Pedro Jones and colleagues, with an educational chance from [employer]. Thrive Questionnaire Date Thrive assessed: 02/20/25 I am a: Patient What is your living situation today?: I have a steady place to live Within the past 12 months, did the food you bought not last and you didn't have the money to get more?: Never true Within the past 12 months, did you worry whether your food would run out before you got money to buy more?: Never true Do you have trouble paying for medicines?: No Do you have trouble getting transportation to medical appointments?: No Do you have trouble paying your heating and electricity bill?: No Do you have trouble taking care of your child, family member or friend?: No Do you have trouble with day-to-day activities such as bathing, preparing meals, shopping, managing finances, etc.?: No Are you currently unemployed and looking for a job?: No Are you interested in more education?: No Please select the resources that you would like help with: None THRIVE Score: 0 AUDIT C Alcohol Use Questionnaire (AUDIT-C) 1. How often do you have a drink containing alcohol?: Never Total Score: 0 CAPRI-7 AMB Questionnaire CAPRI-7 Date CAPRI - 7 assessed: 11/21/25 Feeling nervous, anxious, or on edge: 0 = Not at all Not being able to stop or control worryin = Not at all Worrying too much about different things: 0 = Not at all Trouble relaxin = Not at all Being so restless that it is hard to sit still: 0 = Not at all Becoming easily annoyed or irritable: 0 = Not at all Feeling afraid as if something awful might happen: 0 = Not at all Total CAPRI-7 score (0-4 normal; 5-9 mild; 10-14 moderate; 15-21 severe): 0 Source: Developed by Drs. Arpan Plummer, Patricia Stewart, Pedro Jones and colleagues, with an educational chance from [employer]. Review of Systems Narrative Review of Systems - Neurological/Psychiatric: Reports episodes of being non-verbal. - Musculoskeletal: Reports hypermobility. 10-point ROS reviewed and negative except as noted in HPI Physical exam (Primary Care) Vital Signs: Last Vital Signs Temp 98.1 F 02/20/25 13:36 Pulse 96 02/20/25 13:36 BP 132/61 02/20/25 13:36 Pulse Ox 97 02/20/25 13:36 Oxygen Delivery Method Room Air 02/20/25 13:36 BMI result Body Mass Index 39.5 Tobacco/Smoking Status: Tobacco use Status Tobacco use date assessed 02/20/25 02/20/25 13:37 Patient Tobacco Use Status Never used Tobacco 02/20/25 13:37 Depression Screening Interpretation: Positive Thrive Assessment: Date of Thrive Assessment Date Thrive assessed 02/20/25 02/20/25 13:37 Narrative Physical Exam General: Well-appearing, in no acute distress. Vital signs: Within normal limits. HEENT: Normocephalic, atraumatic. PERRLA, EOMI. Conjunctiva clear, sclera anicteric. Oropharynx clear, mucous membranes moist. TMs intact bilaterally. Neck: Supple, no lymphadenopathy, no thyromegaly, no JVD or carotid bruits. Cardiovascular: RRR, normal S1/S2, no murmurs, rubs, or gallops. Peripheral pulses 2+ and symmetric. No edema. Respiratory: Lungs clear to auscultation bilaterally, no wheezes, rales, or rhonchi. Normal effort. Abdomen: Soft, non-tender, non-distended. Normoactive bowel sounds. No hepatosplenomegaly, no masses. MSK: Full range of motion, no joint swelling or deformity. Normal gait. Skin: Warm, dry, intact. No rashes, lesions, or pallor. Neuro: Alert and oriented x3. Cranial nerves II-XII intact. Strength 5/5 throughout. Sensation intact. Reflexes 2+ symmetric. Normal coordination and gait. Psych: Appropriate mood and affect. Normal judgment and insight. Coding Level of Care Code Est Pt Level 3 (38148) Diagnoses Iron deficiency anemia D50.9 Prediabetes R73.03 Dyslipidemia E78.5 Autism spectrum disorder F84.0 Developmental coordination disorder F82 Hypervitaminosis D E67.3 Assessment & Plan Assessment & Plan (1) Iron deficiency anemia: Code(s): D50.9 - Iron deficiency anemia, unspecified Category: Medical (2) Prediabetes: Code(s): R73.03 - Prediabetes Category: Medical (3) Dyslipidemia: Code(s): E78.5 - Hyperlipidemia, unspecified Category: Medical (4) Autism spectrum disorder: Code(s): F84.0 - Autistic disorder Category: Medical (5) Developmental coordination disorder: Code(s): F82 - Specific developmental disorder of motor function Category: Medical (6) Hypervitaminosis D: Code(s): E67.3 - Hypervitaminosis D Category: Medical Plan Consent Patient was informed and verbally consented to the use of an ambient scribe for clinic note documentation during this visit. Plan 1. Iron Deficiency Anemia - Will prescribe iron and vitamin C supplementation. - The patient was instructed to take the vitamin C with the iron to improve absorption, one hour before or two hours after a meal. - Counseling was provided on the potential side effect of constipation and management with [id number]-gnj-btwielu MiraLAX, increased fiber, and increased water intake. 2. Prediabetes - The patient was counseled on being in the prediabetes range based on an HbA1c of 6.2%. - A referral to a ic designer gate arrays will be placed to assist with dietary modifications. 3. Dyslipidemia - The current plan is for lifestyle and dietary modifications, with no medications to be added at this time. - Advised the patient to reduce consumption of cheese, milk products, and egg yolks. - The referral to a ic designer gate arrays will also address dietary strategies for cholesterol management. 4. Developmental And Behavioral Health Needs - A referral has been placed for occupational therapy to address difficulties with fine and gross motor skills. - Provided the patient's mother with contact information for [facility] for behavioral health services and recommended calling them for intake. - A clinic nurse navigator is available to assist with finding community resources. 5. Contraceptive Management - The patient will receive future Depo-Provera injections at this clinic. - The patient was instructed to bring the medication from the pharmacy for administration. 6. Elevated Vitamin D - With a vitamin D level of 74, the patient was advised to stop taking any vitamin D supplements. Discussion Notes I reviewed the patient's recent lab results in detail with the patient and the patient's mother. I explained that the labs indicate iron deficiency anemia, which is likely dietary as the patient does not menstruate, and recommended starting iron and vitamin C supplements. I educated them on the administration of these supplements and the management of potential constipation. I also explained that the hemoglobin A1c of 6.2% places the patient in the prediabetes range, and the lipid panel shows dyslipidemia with elevated LDL and low HDL. I emphasized that these conditions would be managed with dietary modifications at this time, including reducing intake of cheese, milk products and egg yolks, and I placed a referral to a ic designer gate arrays for comprehensive counseling. Given the patient's high vitamin D level, I advised cessation of any supplementation. We discussed the need for occupational and speech therapy, and I placed a referral for OT. For broader behavioral health services, I provided a referral to [facility]. Finally, I confirmed that the patient can receive Depo-Provera injections at our clinic for contraception and offered the assistance of our nurse navigator for community resources. Patient Instructions - Take one iron pill and one vitamin C pill in the morning. - Take these supplements one hour before eating or two hours after eating. - If you get constipated from the iron, you can use MiraLAX, which is available over the counter. - Also try to drink more water and eat more fiber. - Stop taking any vitamin D supplements. - To help your cholesterol, try to cut down on eating cheese, milk products, and egg yolks. - A ic designer gate arrays will call you to help you with a diet plan. - You will also get a call to set up an appointment for Occupational Therapy. - Please call [facility] at [phone] to get started with their services. - You can get your next Depo shot here. - Please remember to pick it up from the pharmacy and bring it with you to your appointment. Medical Decision Making The patient is a 29-year-old individual who presented with their mother for a detailed review of recent laboratory findings. The lab results revealed several clinically significant, yet manageable, conditions including iron deficiency anemia, prediabetes (HbA1c 6.2%), and dyslipidemia with elevated LDL and low HDL. My primary approach is to address these metabolic issues through intensive lifestyle and dietary interventions before considering pharmacotherapy. The iron deficiency is likely nutritional, given amenorrhea from Depo-Provera use, so supplementation with iron and vitamin C is a logical first step. To support the necessary dietary changes for all three conditions, a referral to a ic designer gate arrays is critical for providing structured and personalized guidance. In addition to the metabolic concerns, the patient has clear developmental and behavioral health needs. Based on the mother's report of challenges with fine and gross motor skills, I have placed a referral for an occupational therapy evaluation. Recognizing the importance of accessible mental health care, I provided a direct referral to [facility], an external organization reported to have more comprehensive services and quicker access than our internal network. The patient's elevated vitamin D level necessitates cessation of supplementation to avoid potential toxicity. Continuity of care for contraception will be maintained by offering Depo-Provera administration within our clinic. Overall, the plan focuses on a multi-faceted approach, combining medical management, lifestyle modification, and robust referral coordination to address the patient's complex needs holistically. Total Time Statement 20 min Total time spent caring for the patient today includes pre-visit chart review, documentation, review of laboratory and diagnostic imaging results, medication reconciliation, medically necessary evaluation, counseling on diagnoses, care coordination, ordering appropriate tests and medications, review of tests performed by other providers, reporting test results to the patient, and communication with other healthcare providers. Orders: Orders OT Evaluation and Treatment Today F84.0 - Autistic disorder Medications: New ascorbic acid (vitamin C) 500 mg PO DAILY 90 tabs 0RF ferrous sulfate 325 mg PO DAILY 90 tabs 0RF
--- OUTSIDE RECORDS SUMMARY | 2025-02-20 13:53 | XMS_ITS | Clinical Summary ---
Author Organization [facility] o[facility]y [facility] Address [address] [place] [address] Phone Care Team Providers Care Unit Educator Name Role Phone Russell Castillo NP Primary Care Provider [phone] Encounters Date Type Department Care Team Description 02/09/[address] [place] [address] Russell Castillo, JORY from Last 3 Months Family History Medical History Relation Name Comments Allergies Mother Asthma Mother Depression Mother Thyroid disease Mother Hyperlipidemia Mother's side 1 Mental illness Mother's side 2 Hypertension Sister Blindness Neg Hx Cataracts Neg Hx Glaucoma Neg Hx Macular degeneration Neg Hx Strabismus Neg Hx Relation Name Status Comments Father Alive Mother Alive Sherri [place] on Mother's side 1 Mother's side 2 [...] [place] this [place] [id number] MEDICA[place] - [place] Care Teams Unit Educator Relationship Specialty Start Date End Date Russell Castillo NP [address] [place] [id number] PCP - General Nurse Practitioner 10/17/24
--- OUTSIDE RECORDS SUMMARY | 2025-02-20 13:53 | XMS_ITS | Data Portability ---
Author Organization ID - [facility], Allergy Address [address] [address] Care Team Providers Care Hair Designer Name Role Phone CORTES WASSERMAN Referring Provider [...] iodide 1 gram/mL oral solution 2024 025 [id number], [address] [place], [id number], 14:55:31 Patient TargetsNo targets recorded. Patient InstructionsNo [...] [facility] [address], [place], [address], 02/06/2025 14:10:49 Result Notes None recorded. Problems Name Problem SNOMED Code Status Onset Date Resolution Date Notes Provider Name and Address Organization Details Recorded Time Bilateral tinnitus 0561756528713 Active 2024 Gurinder Florez DO [address] [address], [place], [phone], [facility] - [facility] 12:55:20 Noise effects on inner ear 08726485 Active 2024 Gurinder Florez DO [address] [address], [place], [phone], [facility] - [facility] [place] 12:55:26 Sensorineur al hearing loss of bilateral ears 336171569 Active 2024 ROLANDO HERRING, [facility] [address] [facility],[address] [address], [place], [phone], [facility] - [facility] 13:49:49 Semicircula r canal dehiscence syndrome 210378235 Active 2024 Gurinder Florez DO [address] [facility],[address] [address], [place], [address], [facility] - [facility] [place] 14:24:02 Patulous right Eustachian tube 8755450451795 104 Active 2024 Gurinder Florez DO [address] [facility],[address] [address], [place], [address], [place] - [facility] [place] 14:50:16 Problem Notes None recorded. Procedures Surgical History Date Name Laterality Status Provider Name and Address Organization Details Recorded Time Comp Audio with Tymps - 37291 & 77314 completed ROLANDO HERRING, AUD [address] [facility], [place], [address], [place] - [facility] [place] 12/25/2024 13:48:51 CT temporal bones - Xoran completed Gurinder Florez, DO [address] [facility] [address], [place], [address], [place] - [facility] 12/25/2024 14:52:39 Imaging Results None recorded. [...] Updated DateTime 12/25/2024 154.94 cm 44.4 kg/m2 375748.21 g Anabelle Forrest [place] - [facility] 12/25/2024 14:00:21 Social History None recorded. Functional Status None recorded. Mental Status None recorded. Family History Nothing Reported. Medical History No medical history recorded. Gynecological HistoryNo gynecological history recorded. Obstetrics History GPAL:G 0 P 0 0 0 0 Past Encounters Encounter ID Performer Location Encounter Start Date Encounter Closed Date Diagnosis/Indication Diagnosis SNOMED-CT Code Diagnosis ICD10 Code Diagnosis IMO Codes Diagnosis Note [id number] Gurinder Florez DO [facility] [address] [address] 12/25/2024 12:57:53 12/25/2024 14:52:15 Bilateral tinnitus 2798043286 102 H93.13 071254 Noise effe cts on inner ear 51442298 H83.3X3 49112721 Semicircul ar canal dehiscence syndrome 203278925 H83.8X9 [id number] right Patulous r ight Eustachian tube 6798306711 564825 H69.01 [id number] ROSALEE PHOENIX [facility] [address] [address] 12/25/2024 13:48:40 12/26/2024 14:11:38 Sensorineural hearing loss of bilateral ears 828249313 H90.3 [id number] Audiologic al evaluation results:Ri t ear:Normal auditory [...] Member ID Guarantor Name 12/31/2024 2 [place] [facility] Sultana Reeves [id number] Sultana Reeves 12/31/2024 1 MEDICARE B-[place]: [employer] [facility] Sultana Reeves [id number] Sultana Reeves Notes Date Note Type Note [...] Prior Audiogram: None Gurinder Florez, DO [address] [facility],[address], [address], [facility] 12/25/2024 14:56:10 12/25/2024 text/html Audiological Nirali luation HPIReported by PatientHearing LossFor hearing loss perceived, patient reportsnone (no loss of audibility).TinnitusFor tinnitus reported, patient reportsboth ears.Abnormal Auditory PerceptionFor abnormal auditory perceptions noted, patient reportshyperacusis (both ears). ROLANDO HERRING, AUD [address] [facility],[address], [address], [facility] 12/25/2024 14:26:20 OBGyn Episode No OBEpisode recorded.
--- OUTSIDE RECORDS SUMMARY | 2025-02-20 13:53 | XMS_ITS | Continuity of Care Document ---
Author Organization [place] - [facility], [facility] Address [address] [place] [address] Care Team Providers Care Physical Education Professor Name Role Phone CORTES WASSERMAN Referring Provider [...] iodide 1 gram/mL oral solution 2024 025 [employer] [facility][id number], [address] [place], [id number], 14:55:31 Patient TargetsNo targets recorded. Patient InstructionsNo [...] dlofgrenmd [facility] [address], [place], [address], 02/06/2025 14:10:49 Result Notes None recorded. Problems Name Problem SNOMED Code Status Onset Date Resolution Date Notes Provider Name and Address Organization Details Recorded Time Bilateral tinnitus 7187522228863 Active 2024 Gurinder Florez DO 100 [facility],[address], [place], [address], [facility] - [facility] 12:55:20 Noise effects on inner ear 81017159 Active 2024 Gurinder Florez DO 100 [facility], [address], [place], [address], [facility] - [facility] [place] 12:55:26 Sensorineur al hearing loss of bilateral ears 893266165 Active 2024 ROLANDO HERRING, [facility],[address], [place], [address], [facility] - [facility] [place] 13:49:49 Semicircula r canal dehiscence syndrome 155282567 Active 2024 Gurinder Florez DO 100 [facility],[address], [place], [address], [place] - [facility] [place] 14:24:02 Patulous right Eustachian tube 3738233925494 104 Active 2024 Gurinder Florez DO 100 [facility],[address], [place], [address], [place] - [facility] [place] 14:50:16 Problem Notes None recorded. Procedures Surgical History Date Name Laterality Status Provider Name and Address Organization Details Recorded Time Comp Audio with Tymps - 14052 & 75074 completed ROLANDO HERRING, AUD 100 [facility],[place] [address], [place], [address], [facility] - [facility] 12/25/2024 13:48:51 CT temporal bones - Xoran completed Gurinder Florez, DO 100 [facility] [address], [address], [facility] - [facility] 12/25/2024 14:52:39 Imaging Results None recorded. [...] Updated DateTime 12/25/2024 154.94 cm 44.4 kg/m2 296525.21 g Anabelle Forrest [place] - [facility] 12/25/2024 14:00:21 Social History None recorded. Functional Status None recorded. Mental Status None recorded. Family History Nothing Reported. Medical History No medical history recorded. Gynecological HistoryNo gynecological history recorded. Obstetrics History GPAL:G 0 P 0 0 0 0 Past Encounters Encounter ID Performer Location Encounter Start Date Encounter Closed Date Diagnosis/Indication Diagnosis SNOMED-CT Code Diagnosis ICD10 Code Diagnosis IMO Codes Diagnosis Note [id number] Gurinder Florez DO [facility] of [address] [address] 12/25/2024 12:57:53 12/25/2024 14:52:15 Bilateral tinnitus 2477729280 102 H93.13 943201 Noise effe cts on inner ear 29977173 H83.3X3 40698729 Semicircul ar canal dehiscence syndrome 520405293 H83.8X9 4281948588 right Patulous r ight Eustachian tube 2053076692 067593 H69.01 [id number] ROSALEE PHOENIX [facility] of [address] [address] 12/25/2024 13:48:40 12/26/2024 14:11:38 Sensorineural hearing loss of bilateral ears 469146415 H90.3 [id number] Audiologic al evaluation results:Ri ght ear:Normal auditory [...] 2 [place] Sultana Reeves [id number] Sultana Reeves 12/25/2024 1 MEDICARE B-[place]: [facility] Sultana Reeves [id number] Sultana Reeves Notes Date Note Type Note [...] Prior Audiogram: None Gurinder Florez, DO [address], [address], [facility] 12/25/2024 14:56:10 12/25/2024 text/html Audiological Nirali luation HPIReported by PatientHearing LossFor hearing loss perceived, patient reportsnone (no loss of audibility).TinnitusFor tinnitus reported, patient reportsboth ears.Abnormal Auditory PerceptionFor abnormal auditory perceptions noted, patient reportshyperacusis (both ears). ROLANDO HERRING, AUD 100 [facility],[address], [address], [facility] 12/25/2024 14:26:20 OBGyn Episode No OBEpisode recorded.
--- OUTSIDE RECORDS SUMMARY | 2025-02-20 13:53 | XMS_ITS | Continuity of Care Document ---
Author Organization [place] - [facility], [facility] Address [address] [place] [address] Care Team Providers Care Soft Tile Setter Name Role Phone CORTES WASSERMAN Referring Provider [...] [facility] [address], [place], [address], 02/06/2025 14:10:49 Result Notes None recorded. Problems Name Problem SNOMED Code Status Onset Date Resolution Date Notes Provider Name and Address Organization Details Recorded Time Bilateral tinnitus 7855836679692 Active 2024 Gurinder Florez, DO [address], [address] , [facility] - [facility] 12:55:20 Noise effects on inner ear 71448287 Active 2024 Gurinder Florez DO 100 [facility], E [facility], [place], [address], [facility] - [facility] [place] 12:55:26 Sensorineur al hearing loss of bilateral ears 247101905 Active 2024 ROLANDO HERRING, [facility] 100 [facility], E [facility], [place], [address], [facility] - [facility] [place] 13:49:49 Semicircula r canal dehiscence syndrome 222646224 Active 2024 Gurinder Florez, 100 [facility], E [facility], [place], [address], [facility] - [facility] [place] 14:24:02 Patulous right Eustachian tube 4759509971814 104 Active 2024 Gurinder Florez, 100 [facility],[place] [address] [address], [place], [address], [facility] - [facility] [place] 14:50:16 Problem Notes None recorded. Procedures Surgical History Date Name Laterality Status Provider Name and Address Organization Details Recorded Time Comp Audio with Tymps - 90090 & 86331 completed ROLANDO HERRING, [facility] 100 [facility],[address], [address], [facility] - [facility] [place] 12/25/2024 13:48:51 CT temporal bones - Xoran completed Gurinder Florez, 100 [facility],[address], [address], [facility] - [facility] [place] 12/25/2024 14:52:39 Imaging Results None recorded. Procedure [...] Updated DateTime 12/25/2024 154.94 cm 44.4 kg/m2 589317.21 g Anabelle Forrest [place] - [facility] [...] ICD10 Code Diagnosis IMO Codes Diagnosis Note [id number] Gurinder Florez DO [facility]NT[facility] [address] [address] 12/25/2024 12:57:53 12/25/2024 14:52:15 Bilateral tinnitus 0801505747 102 H93.13 963637 Noise effe cts on inner ear 14664338 H83.3X3 84271552 Semicircul ar canal dehiscence syndrome 454857744 H83.8X9 1579533577 right Patulous r ight Eustachian tube 8627670263 263588 H69.01 3908585 [id number] ROSALEE PHOENIX [facility] of [facility] [address] [place] [address] 12/25/2024 13:48:40 12/26/2024 14:11:38 Sensorineural hearing loss of bilateral ears 414626913 H90.3 [id number] Audiologic al evaluation results:Ri ght ear:Normal auditory [...] Member ID Guarantor Name 12/25/2024 2 [place] Sultana Reeves [id number] Sultana Leandro 12/25/2024 1 [place] B-[place]: [facility] [employer] Sultana Reeves [id number] Sultana Reeves Notes Date Note Type Note [...] concerns. Prior Audiogram: None Gurinder Florez, DO [address] [place] [address],[place] [address], [place], [address], [facility] - [facility] 12/25/2024 14:56:10 12/25/2024 text/html Audiological Nirali luation HPIReported by PatientHearing LossFor hearing loss perceived, patient reportsnone (no loss of audibility).TinnitusFor tinnitus reported, patient reportsboth ears.Abnormal Auditory PerceptionFor abnormal auditory perceptions noted, patient reportshyperacusis (both ears). ROLANDO HERRING, [place] [address], [place], [address], [facility] 12/25/2024 14:26:20 OBGyn Episode No OBEpisode recorded.
--- OUTSIDE RECORDS SUMMARY | 2025-02-20 13:53 | XMS_ITS | Clinical Summary ---
Author Organization [facility] Address [address] [place], [place] [address] Phone Care Team Providers Care Chief Legal Officer Name Role Phone Jose David Us MD Primary Care Provider [phone] Social History Tobacco Use Types Packs/Day Years Used Date Smoking Tobacco: Never Assessed Comments Unknown Sex and Gender Information Value Date Recorded Sex Assigned at Not on file Legal Sex Female 6:19 PM EST Gender Identity Not on file Sexual Orientation Not on file Plan of Treatment Not on file Medical Devices Not on file Insurance [id number] [facility] MEDICARE PART A & [place] [address] [place] [address] MEDICARE PART A & B [facility] MEDIC[facility] PART A & B [facility] & [facility] PART A & [facility] & B [place] [facility] PART A & [facility]IC[facility] PART A & B [facility] Care Teams Chief Legal Officer Relationship Specialty Start Date End Date Jose David Us MD [address] [place] [address] [place] [address] PCP - General Internal Medicine 10/21/21 Additional Source Comments The information contained in this document represents components of the legal health record. It is not the complete legal health record.[facility]
== END 2025-02-20 14:33 | disposition home or self-care (01) ==
LOC: HO.HMCFMS 13:34
PROVIDERS: PCP Student in an Organized Health Care Education/Training Program; Visit Provider Student in an Organized Health Care Education/Training Program
DX: D50.9 Iron deficiency anemia, unspecified (principal); R73.03 Prediabetes; E78.5 Hyperlipidemia, unspecified; F84.0 Autistic disorder; F82 Specific developmental disorder of motor function; E67.3 Hypervitaminosis D

== ENCOUNTER → 2025-02-20 13:33 | Outpatient (BNVA) | payer MEDICARE, MEDICAID, SELFPAY | PROVIDERS: PCP Student in an Organized Health Care Education/Training Program; Visit Provider Student in an Organized Health Care Education/Training Program | DX: D50.9 Iron deficiency anemia, unspecified (principal); R73.03 Prediabetes; E78.5 Hyperlipidemia, unspecified; F84.0 Autistic disorder; F82 Specific developmental disorder of motor function; E67.3 Hypervitaminosis D; Z71.3 Dietary counseling and surveillance; Z79.3 Long term (current) use of hormonal contraceptives; Z13.30 Encounter for screening examination for mental health and behavioral disorders, unspecified | CPT/HCPCS: 96127; 99211; 99212 ==